=== PATIENT | male | born 1995 | race Two or more races ===

== ENCOUNTER 2016-11-12 23:19 | Emergency (ER) | payer OTHER ==
[~2016-11-12] VITALS: Ht 172.7 cm; Wt 52.3 kg
[2016-11-13] MEDS ORDERED: ONDANSETRON HCL 4 MG/2 ML VIAL IV ONE (00:15)
[2016-11-13] MEDS ORDERED: HYDROmorphone HCL 2 MG/ML VL IV ONE (00:15)
[2016-11-13] MEDS ORDERED: BACITRACIN TOP OINT 1 UD PKG TOP ONE (03:15)
[2016-11-13 05:00] VITALS: BP 105/58
== END 2016-11-13 05:21 | disposition home or self-care (01) ==
LOC: ER 23:19
DX: T23.231A Burn of second degree of multiple right fingers (nail), not including thumb, initial encounter (principal); X10.2XXA Contact with fats and cooking oils, initial encounter; Y93.G9 Activity, other involving cooking and grilling; Y99.8 Other external cause status; Y92.89 Other specified places as the place of occurrence of the external cause
CPT/HCPCS: 16020; 96374; 96375; 99284; J1170; J2405